=== PATIENT | female | born 1995 | race African-American/Black ===

== ENCOUNTER → 2018-11-28 | Outpatient (CLI) | payer BC ==
[~2018-11-28] MED LIST: PRENCAP OR
[2018-11-28 13:24] LABS: Hematocrit 35.7 % (36.0-46.0)
[2018-11-28 13:26] LABS: Hemoglobin 11.4 g/dL (12.2-16.2); Mean Corpuscular Hgb Conc. 31.9 g/dL (32.0-36.0); Mean Corpuscular Volume 81.6 fL (80.0-100.0); Platelet Count (auto) 265 10^3/uL (140-450); Red Blood Cells 4.38 10^6/uL (4.0-5.20); Red Cell Distribution Width 15.6 % (11.8-14.3); White Blood Cell 3.9 10^3/uL (4.4-10.8)
[2018-11-28 13:35] LABS: Band Neutrophils % (manual) 0; Basophils % (manual) 0 (0.0-2.0); Blast Cells 0; Myelocytes % 0; Promyelocytes % 0; Reactive Lymphocytes 0
[2018-11-28 14:12] LABS: Eosinophils % (manual) 15 (0-7); Lymphocytes % (manual) 23 (10.0-50.0); Metamyelocytes % 1; Monocytes % (manual) 7 (0-12)
[2018-11-28 15:14] LABS: Alcohol, Urine < 3.0 mg/dL (0-5); Amphetamine Screen, Urine NEGATIVE (NEGATIVE); Barbiturate Scree,Urine NEGATIVE (NEGATIVE); Benzodiazephine Screen, Urine NEGATIVE (NEGATIVE); Cannabinoid Screen, Urine NEGATIVE (NEGATIVE); Cocaine Screen, Urine NEGATIVE (NEGATIVE); Opiate Scree,Urine NEGATIVE (NEGATIVE); Phencyclidine Screen, Urine NEGATIVE (NEGATIVE)
[2018-11-29 05:06] LABS: RPR Non Reactive (Non Reactive)
== END | disposition home or self-care (01) ==
LOC: LAB 09:44
PROVIDERS: ATTEND Specialist
DX: Z34.81 Encounter for supervision of other normal pregnancy, first trimester (principal); Z20.2 Contact with and (suspected) exposure to infections with a predominantly sexual mode of transmission; Z3A.12 12 weeks gestation of pregnancy
CPT/HCPCS: 36415; 80307; 83021; 83036; 85007; 85027; 85660; 86256; 86762; 86850; 86900; 86901; 87086; 87340

== ENCOUNTER 2018-12-21 14:19 | Emergency (ER) | payer BC ==
[~2018-12-21] VITALS: Ht 172.7 cm; Wt 73.0 kg
[2018-12-21 14:35] VITALS: BP 118/59
[2018-12-21 15:11] LABS: Mean Corpuscular Hgb Conc. 32.2 g/dL (32.0-36.0); Nucleated Red Blood Cells % 0.1 %; White Blood Cell 4.4 10^3/uL (4.4-10.8)
[2018-12-21 15:12] LABS: Basophils # (auto) 0 uL; Basophils % (auto) 0.7 % (0.0-2.0); Eosinophils # (auto) 0.2 uL; Hematocrit 33.9 % (36.0-46.0); Hemoglobin 10.9 g/dL (12.2-16.2); Lymphocytes # (auto) 1.1 uL; Lymphocytes % (auto) 24.5 % (10.0-50.0); Mean Corpuscular Hemoglobin 25.8 pg (28.0-32.0); Mean Corpuscular Volume 79.9 fL (80.0-100.0); Monocytes # (auto) 0.6 uL; Monocytes % (auto) 14.1 % (0.0-12.0); Neutrophils # (auto) 2.5 uL; Neutrophils % (auto) 56.7 % (37.0-80.0); Platelet Count (auto) 265 10^3/uL (140-450); Red Blood Cells 4.24 10^6/uL (4.0-5.20); Red Cell Distribution Width 14.5 % (11.8-14.3)
[2018-12-21 15:15] LABS: Potassium 3.5 mmol/L (3.5-5.1)
[2018-12-21 15:18] LABS: Albumin 3.2 g/dL (3.4-5.0); Calcium 8.3 mg/dL (8.5-10.1)
[2018-12-21 15:23] LABS: BUN/Creatinine Ratio 8.3; Bilirubin, Total 0.4 mg/dL (0.2-1.0); Total Protein 7.5 g/dL (6.4-8.2)
[2018-12-21] MEDS ORDERED: cefTRIAXone SOD 1,000 MG VL IM ONE (15:45)
== END 2018-12-21 16:50 | disposition home or self-care (01) ==
LOC: ER 14:25
DX: O23.42 Unspecified infection of urinary tract in pregnancy, second trimester (principal); Z88.0 Allergy status to penicillin; Z3A.15 15 weeks gestation of pregnancy
CPT/HCPCS: 36415; 76805; 80053; 81002; 84702; 85025; 96372; 99284; J0696

== ENCOUNTER → 2019-03-13 | Outpatient (CLI) | payer BC ==
[2019-03-13 10:32] LABS: Basophils # (auto) 0 uL; Eosinophils # (auto) 0.1 uL; Eosinophils % (auto) 4.1 % (0.0-7.0); Monocytes # (auto) 0.4 uL; Neutrophils # (auto) 1.7 uL; White Blood Cell 3.2 10^3/uL (4.4-10.8)
[2019-03-13 10:35] LABS: Basophils % (auto) 0.6 % (0.0-2.0); Hematocrit 29.4 % (36.0-46.0); Hemoglobin 9.4 g/dL (12.2-16.2); Lymphocytes # (auto) 0.9 uL; Lymphocytes % (auto) 28.8 % (10.0-50.0); Mean Corpuscular Hemoglobin 25.2 pg (28.0-32.0); Mean Corpuscular Volume 78.9 fL (80.0-100.0); Neutrophils % (auto) 52.5 % (37.0-80.0); Nucleated Red Blood Cells % 0.1 %; Platelet Count (auto) 285 10^3/uL (140-450); Red Blood Cells 3.72 10^6/uL (4.0-5.20); Red Cell Distribution Width 15.3 % (11.8-14.3)
== END | disposition home or self-care (01) ==
LOC: LAB 09:53
PROVIDERS: ATTEND Specialist
DX: O99.810 Abnormal glucose complicating pregnancy (principal); Z3A.25 25 weeks gestation of pregnancy
CPT/HCPCS: 36415; 82951; 85025; 86703

== ENCOUNTER 2019-05-03 11:40 | Observation (INO) | payer BC ==
[~2019-05-03] VITALS: Ht 172.7 cm; Wt 80.7 kg
[2019-05-03] MEDS ORDERED: LACTATED RINGER'S 1,000 ML IV ONE (12:30)
[2019-05-03] MEDS ORDERED: FERR27TA2 PO (13:58)
== END 2019-05-03 13:50 | disposition home or self-care (01) | DRG 833 ==
LOC: LDRP 11:40
PROVIDERS: ADMIT Obstetrics & Gynecology; ATTEND Obstetrics & Gynecology
DX: O62.9 Abnormality of forces of labor, unspecified (principal); Z3A.34 34 weeks gestation of pregnancy
CPT/HCPCS: 59025; 81002; G0378; 96361

== ENCOUNTER 2019-06-08 00:51 | Inpatient (IN) | payer BC ==
[~2019-06-08] VITALS: Ht 175.3 cm; Wt 83.9 kg
[~2019-06-08 00:51] MED LIST changes: +FERR27TA2 PO
[2019-06-08] MEDS ORDERED: LACT. RINGERS/OXYTOCIN 20UNITS 1,000 ML IV SCH (01:19)
[2019-06-08] MEDS ORDERED: LACTATED RINGER'S 1,000 ML IV SCH (01:19)
[2019-06-08] MEDS ORDERED: LIDOCAINE 2%HCL (LOCAL ANESTH.) INJ 20ML MDV ID ONE (01:30)
[2019-06-08] MEDS ORDERED: WITCH HAZEL-GLYCERIN PAD TOP PRN (01:30)
[2019-06-08] MEDS ORDERED: PHISODERM TOP SOLN 240ML BTL TOP PRN (01:30)
[2019-06-08] MEDS ORDERED: DERMOPLAST 60ML BOTTLE TOP PRN (01:30)
[2019-06-08] MEDS ORDERED: NALBUPHINE HCL 10 MG/1ml INJECTION IV PRN (01:30)
[2019-06-08] MEDS ORDERED: LIDOCAINE 2%HCL (LOCAL ANESTH.) INJ 20ML MDV ONE (01:46)
[2019-06-08] MEDS ORDERED: LACT. RINGERS/OXYTOCIN 20UNITS 1,000 ML IV ONE (01:46)
[2019-06-08 01:56] LABS: Basophils # (auto) 0 uL; Eosinophils # (auto) 0.1 uL; Lymphocytes # (auto) 1.3 uL; Neutrophils # (auto) 3.4 uL; Nucleated Red Blood Cells % 0.1 %; White Blood Cell 5.4 10^3/uL (4.4-10.8)
[2019-06-08 01:58] LABS: Basophils % (auto) 0.5 % (0.0-2.0); Eosinophils % (auto) 1.7 % (0.0-7.0); Hematocrit 32.1 % (36.0-46.0); Lymphocytes % (auto) 23.6 % (10.0-50.0); Mean Corpuscular Hemoglobin 21.7 pg (28.0-32.0); Mean Corpuscular Hgb Conc. 31.1 g/dL (32.0-36.0); Mean Corpuscular Volume 69.8 fL (80.0-100.0); Monocytes # (auto) 0.6 uL; Monocytes % (auto) 11.9 % (0.0-12.0); Neutrophils % (auto) 62.3 % (37.0-80.0); Platelet Count (auto) 258 10^3/uL (140-450); Red Blood Cells 4.59 10^6/uL (4.0-5.20); Red Cell Distribution Width 18.4 % (11.8-14.3)
[2019-06-08 02:12] LABS: INR < 0.93 (0.9-1.15); Partial Thromboplastin Time 25.7 sec (23.64-32.05)
[2019-06-08 02:15] VITALS: BP 137/68
[2019-06-08 02:21] LABS: Calcium 8.5 mg/dL (8.5-10.1); Potassium 3.9 mmol/L (3.5-5.1)
[2019-06-08 02:25] LABS: BUN/Creatinine Ratio 10.8; Bilirubin, Total 0.6 mg/dL (0.2-1.0); Total Protein 7.7 g/dL (6.4-8.2)
[2019-06-08] MEDS: IBUPROFEN 600 MG TAB PO PRN ×3 (03:39→14:58)
--- NOTE | 2019-06-08 04:00 | NUR ---
Ambulation: Patient OOB with standby assistance by RN. Patient ambulated to bathroom with steady gait. Patient able to void 600ml without difficulty. [facility] teaching provided with returned demonstration by patient. Clean gown provided and bed linen changed. Patient ambulated back to bed with steady gait and no distress noted.
[2019-06-08] MEDS ORDERED: CLINDAMYCIN 900MG IV 50 ML IV SCH (06:00)
[2019-06-08 06:52] VITALS: BP 113/68
[2019-06-08 11:00] VITALS: BP 111/67
--- NOTE | 2019-06-08 12:02 | NUR ---
PT STATES HER ABDOMINAL CRAMPING IS A 7/10 PAIN AND THE MOTRIN IS NOT WORKING. PATIENT GIVEN HOT PACKS FOR CRAMPING AND PRN MOTRIN 600MG PO GIVEN ORDERED. DR. SALDANA AT [facility]UR[facility]ES STATION AND NOTIFIED. ORDERS RECEIVED FROM DR. SALDANA FOR TYLENOL 650MG PO [id number] FOR MILD PAIN. READ BACK AND VERIFIED ORDERS. WILL CARRY OUT.
[2019-06-08] MEDS: ACETAMINOPHEN 325 MG TAB PO PRN ×2 (12:44→20:24)
[2019-06-08 15:00] VITALS: BP 102/61
[2019-06-08 19:24] VITALS: BP 102/66
[2019-06-08] MEDS ORDERED: TETANUS-DIPTH-ACEL PERTUSSIS 0.5ML SYRG IM ONE (21:15)
[2019-06-08 23:00] VITALS: BP 112/63
[2019-06-09 02:46] VITALS: BP 103/61
[2019-06-09 07:14] VITALS: BP 107/58
--- NOTE | 2019-06-09 07:20 | NUR ---
IV removal 18G LEFT WRIST IV DC'd with clean sterile technique, catheter fully intact. Pressure dressing applied to site. Patient tolerated well.
--- NOTE | 2019-06-09 08:15 | NUR ---
Discharge: Discharge instructions given as ordered. Pt encouraged to follow up with [facility]EDIATR[facility]ED PRACTICAL NURSE as instructed. All questions and concerns addressed. Patient verbalized understanding. Medication reconciliation completed and copy given to patient. All required/requested vaccines given and copies of vaccinations given to patient. Patient encouraged to prepare to depart unit.
--- NOTE | 2019-06-09 08:55 | NUR ---
Discharge: Patient taken to vehicle ambulatory via steady gait, pt declined wheelchair with all personal belongings, accompanied by staff and family member. No distress noted at time of departure, no adverse changes in status since initial assessment.
== END 2019-06-09 08:55 | disposition home or self-care (01) | DRG 807 ==
LOC: LDRP 00:51 → UNDOADMOB 00:51 → OBSVTOIN 01:19 → INTOOBSV 01:19 → LDRP 04:33
PROVIDERS: ADMIT Specialist; ATTEND Specialist
PROC: 3E0234Z Introduction of Serum, Toxoid and Vaccine into Muscle, Percutaneous Approach (ICD-10-PCS; 2019-06-08)
PROC: 10E0XZZ Delivery of Products of Conception, External Approach (ICD-10-PCS; principal; 2019-06-09)
PROC: 10907ZC Drainage of Amniotic Fluid, Therapeutic from Products of Conception, Via Natural or Artificial Opening (ICD-10-PCS; 2019-06-09)
DX: O80 Encounter for full-term uncomplicated delivery (principal); Z37.0 Single live birth; Z3A.39 39 weeks gestation of pregnancy; Z88.0 Allergy status to penicillin; Z88.1 Allergy status to other antibiotic agents; Z23 Encounter for immunization
CPT/HCPCS: 36415; 59025; 59409; 80053; 81002; 84112; 85025; 85610; 85730; 86850; 86900; 86901; 90715; 96365; 96366; G0378; J2590

== ENCOUNTER 2022-03-06 11:56 | Emergency (ER) | payer BC, MEDICAID, OTHER ==
[~2022-03-06] VITALS: Ht 170.2 cm; Wt 83.0 kg
[~2022-03-06 11:56] MED LIST changes: -FERR27TA2 PO
[2022-03-06 18:29] VITALS: BP 136/81
== END 2022-03-06 18:39 | disposition home or self-care (01) ==
LOC: ER 11:56
DX: O26.892 Other specified pregnancy related conditions, second trimester (principal); R10.9 Unspecified abdominal pain; O99.512 Diseases of the respiratory system complicating pregnancy, second trimester; J45.909 Unspecified asthma, uncomplicated; Z79.899 Other long term (current) drug therapy; Z88.0 Allergy status to penicillin; Z88.1 Allergy status to other antibiotic agents; Z3A.20 20 weeks gestation of pregnancy
CPT/HCPCS: 76805